=== PATIENT | female | born 1995 | race Caucasian/White ===

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

== ENCOUNTER 2017-01-15 13:42 | Emergency (ER) | payer MEDICAID ==
--- NOTE | 2017-01-15 13:55 | EDM.PDOC ---
ED HPI GENERAL MEDICAL PROBLEM - General Chief Complaint: Headache Stated Complaint: Headache Time Seen by Provider: 01/15/17 13:55 Source of Information: Reports: Patient History Limitations: Reports: No Limitations - History of Present Illness INITIAL COMMENTS - FREE TEXT/NARRATIVE: 21 YO WF [id number] 37 week complaining of generalized headache x 4 days. Pt reports she came to ER because she felt like she had less activity. Pt reports she developed her headache 4 days ago but has been able to manage it with tylenol. Pt denies any lower extremity swelling or shortness of breath. Pt denies any previous history of headaches. Pt denies any fever/chills or nausea/vomiting. Onset Date: 01/12/17 Duration: Day(s): (4) Location: Reports: Head Quality: Reports: Ache Severity: Mild Improves with: Reports: None Worsens with: Reports: None Associated Symptoms: Reports: No Other Symptoms Headache Pain Score (Numeric/FACES): 6 - Related Data Allergies Allergy/AdvReac Type Severity Reaction Status Date / Time No Known Drug Allergies Allergy Other Verified 01/15/17 14:04 Home Meds: Home Meds Famotidine [Famotidine] 20 mg PO DAILY PRN 01/15/17 [History] Pnv With Ca,No.72/Iron,Carb/FA [ Plus Iron Tablet] 1 each PO DAILY 01/15 [History] Past Medical History Respiratory History: Reports: Other (See Below) Other Respiratory History: Recurrent pneumonia in childhood, none for past 5 years. Gastrointestinal History: Reports: Other (See Below) Other Gastrointestinal History: some gallbladder issues with first Genitourinary History: Reports: Other (See Below) Other Genitourinary History: Pt states she passed kidney stones during her first . 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 Neurological History: Reports: Migraines Psychiatric History: Reports: PTSD, Other (See Below) Other Psychiatric History: "Found some relief from PTSD in medicinal marijuana. " But denies any use in past 3 months. Social & Family History - Family History Family Medical History: Noncontributory - Tobacco Use Smoking Status *Q: Former Smoker Used Tobacco, but Quit: Yes Month Tobacco Last Used: July2016 Second Hand Smoke Exposure: No - Recreational Drug Use Recreational Drug Use: Yes Drug Use in Last 12 Months: Yes Recreational Drug Type: Reports: Marijuana/Hashish, Other (see below) Other Recreational Drug Type: Used medicinal marijuana for treatment of PTSD in [place] Recreational Drug Use Frequency: Not Used In Over 3 Months ED ROS GENERAL - Review of Systems Review Of Systems: See Below Constitutional: Reports: No Symptoms HEENT: Reports: No Symptoms Respiratory: Reports: No Symptoms Cardiovascular: Reports: No Symptoms Endocrine: Reports: No Symptoms GI/Abdominal: Reports: No Symptoms : Reports: No Symptoms Musculoskeletal: Reports: No Symptoms Skin: Reports: No Symptoms Neurological: Reports: Headache Psychiatric: Reports: No Symptoms Hematologic/Lymphatic: Reports: No Symptoms Immunologic: Reports: No Symptoms ED EXAM, GENERAL - Physical Exam Exam: See Below Exam Limited By: No Limitations General Appearance: Alert, WD/WN, No Apparent Distress Eye Exam: Bilateral Eye: EOMI, PERRL Nose: Normal Inspection, Normal Mucosa, No Blood Throat/Mouth: Normal Inspection, Normal Lips, Normal Teeth, Normal Gums, Normal Oropharynx, Normal Voice, No Airway Compromise Head: Atraumatic, Normocephalic Neck: Normal Inspection, Supple, Non-Tender, Full Range of Motion Respiratory/Chest: No Respiratory Distress, Lungs Clear, Normal Breath Sounds, No Accessory Muscle Use, Chest Non-Tender Cardiovascular: Normal Peripheral Pulses, Regular Rate, Rhythm, No Edema, No Gallop, No JVD, No Murmur, No Rub GI/Abdominal: Normal Bowel Sounds, Soft, Non-Tender, No Organomegaly, No Distention, No Abnormal Bruit, No Mass Back Exam: Normal Inspection, Full Range of Motion, NT Extremities: Normal Inspection, Normal Range of Motion, Non-Tender, Normal Capillary Refill, No Pedal Edema Neurological: Alert, Oriented, CN II-XII Intact, Normal Cognition, Normal Gait, Normal Reflexes, No Motor/Sensory Deficits Psychiatric: Normal Affect, Normal Mood Skin Exam: Warm, Dry, Intact, Normal Color, No Rash Lymphatic: No Adenopathy Course - Vital Signs Last Recorded V/S: Last Vital Signs Temp 36.3 C 01/15/17 13:53 Pulse 100 01/15/17 13:53 Resp 18 01/15/17 13:53 BP 133/74 01/15/17 13:53 Pulse Ox 97 01/15/17 13:53 - Orders/Labs/Meds Orders: Active Orders 24 hr Category Date Time Status Heart Tones [ Heart Rate] [RC] Click to Edit Care 01/15/17 14:25 Active UA W/MICROSCOPIC [URIN] Stat Lab 01/15/17 14:23 Results Labs: Laboratory Tests 01/15/17 Range/Units 14:23 Urine Color Yellow (YELLOW) Urine Appearance Slightly cloudy H (CLEAR) Urine pH 7.0 (5.0-9.0) Ur Specific [place] 1.015 (1.005-1.030) Urine Protein Negative (NEGATIVE) mg/dL Urine Glucose (UA) Negative (NEGATIVE) mg/dL Urine Ketones Negative (NEGATIVE) mg/dL Urine Occult Blood Negative (NEGATIVE) Urine Nitrite Negative (NEGATIVE) Urine Bilirubin Negative (NEGATIVE) Urine Urobilinogen 0.2 (0.2-1.0) E.U./dL Ur Leukocyte Esterase Negative (NEGATIVE) Meds: Medications Discontinued Medications Generic Name Dose Route Start Last Admin Trade Name Artemioq PRN Reason Stop Dose Admin Acetaminophen 1,000 mg 01/15/17 14:24 01/15/17 14:32 Tylenol Extra Strength PO 01/15/17 14:25 1,000 mg ONETIME ONE Administration Diphenhydramine HCl 50 mg 01/15/17 14:24 01/15/17 14:32 Benadryl PO 01/15/17 14:25 50 mg ONETIME ONE Administration - Radiology Interpretation Free Text/Narrative:: Heart Tones- 160BPM Departure - Departure Time of Disposition: 14:50 Disposition: Home, Self-Care 01 Condition: Good Clinical Impression: Headache Qualifiers: Headache type: unspecified Headache chronicity pattern: acute headache Intractability: not intractable Qualified Code(s): R51 - Headache Qualifiers: Weeks of gestation: 37 weeks Qualified Code(s): Z3A.37 - 37 weeks gestation of - Discharge Information Instructions: General Headache Without Cause, [id number] Referrals: Rachel Ann TRUST MANAGER [Primary Care Provider] - Forms: ED Department Discharge - My Orders Last 24 Hours: My Active Orders 01/15/17 14:23 UA W/MICROSCOPIC [URIN] Stat 01/15/17 14:25 Heart Tones [ Heart Rate] [RC] Click to Edit - Assessment/Plan Last 24 Hours: My Active Orders 01/15/17 14:23 UA W/MICROSCOPIC [URIN] Stat 01/15/17 14:25 Heart Tones [ Heart Rate] [RC] Click to Edit Assessment:: 1. Headache- no evidence of pre-eclampsia 2. decreased movrement per patient- FHT 160's; sent to [facility] for pelvic U/S 3. follow up with SEX OFFENDER TREATMENT PROFESSIONAL for further evaluation and treatment per clinic 4. return to ER for worsening symptoms Plan: 1. Headache- no evidence of pre-eclampsia 2. decreased movrement per patient- FHT 160's; sent to [facility] for pelvic U/S 3. follow up with SEX OFFENDER TREATMENT PROFESSIONAL for further evaluation and treatment per clinic 4. return to ER for worsening symptoms
[2017-01-15 14:04] VITALS: BP 133/74
[2017-01-15] MEDS ORDERED: Acetaminophen 500 MG Tab PO ONE (14:24)
[2017-01-15] MEDS ORDERED: diphenhydrAMINE 25 MG Cap PO ONE (14:24)
== END 2017-01-15 14:55 | disposition home or self-care (01) ==
LOC: KA.ED 13:42
DX: O99.89 Other specified diseases and conditions complicating pregnancy, childbirth and the puerperium (principal); R51 Headache; Z87.891 Personal history of nicotine dependence; Z3A.37 37 weeks gestation of pregnancy
CPT/HCPCS: 81001; 99284; A9270

== ENCOUNTER 2017-02-09 15:06 | Emergency (ER) | payer MEDICAID ==
--- NOTE | 2017-02-09 15:31 | EDM.PDOC ---
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 CONTRACTIONS STARTED APPROXIMATELY 4 HOURS AGO AND INTERVALS ARE DECREASING. PATIENT STATES PRIOR TO ARRIVAL CONTRACTIONS WERE ABOUT 10 MINUTES APART AND WHILE IN ER DECREASED TO 4-5 MINUTES APART. PATIENT WAS SEEN [address] SEWELL IN [place], PATIENT STATES HAS BEEN UNEVENTFUL, PROGRESSING WELL, AND WAS SCHEDULED TO BE INDUCED TOMORROW MORNING. DISCUSSED CASE WITH DR. GALVEZ'S, OB /AUDIO VISUAL ARTS DIRECTOR FROM [facility] AND RECOMMENDATION WAS TO TRANSPORT PATIENT VIA EMS IMMEDIATELY. PELVIC EXAM WAS NOT PERFORMED AT THIS TIME FOR FEAR OF INDUCING LABOR. HEART TONES AT 130, AND PATIENT'S VITAL SIGNS WERE STABLE. PATIENT DENIES VAGINAL BLEEDING, CHEST PAIN, SHORTNESS OF BREATH. Onset: Today Duration: Hour(s): Location: Reports: Abdomen Quality: Reports: Other (CONTRACTIONS) Improves with: Reports: None Worsens with: Reports: None - Related Data Allergies Allergy/AdvReac Type Severity Reaction Status Date / Time No Known Drug Allergies Allergy Other Verified 01/15/17 14:04 Home Meds: Home Meds Famotidine [Famotidine] 20 mg PO DAILY PRN 01/15/17 [History] Pnv With Ca,No.72/Iron,Carb/FA [ Plus Iron Tablet] 1 each PO DAILY 01/15 [History] Past Medical History Respiratory History: Reports: Other (See Below) Other Respiratory History: Recurrent pneumonia in childhood, none for past 5 years. Gastrointestinal History: Reports: Other (See Below) Other Gastrointestinal History: some gallbladder issues with first Genitourinary History: Reports: Other (See Below) Other Genitourinary History: Pt states she passed kidney stones during her first . 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 Neurological History: Reports: Migraines Psychiatric History: Reports: PTSD, Other (See Below) Other Psychiatric History: "Found some relief from PTSD in medicinal marijuana. " But denies any use in past 3 months. Social & Family History - Family History Family Medical History: Noncontributory - Tobacco Use Smoking Status *Q: Former Smoker Used Tobacco, but Quit: Yes Month Tobacco Last Used: July2016 Second Hand Smoke Exposure: No - Caffeine Use Caffeine Use: Reports: Coffee, Soda - Recreational Drug Use Recreational Drug Use: Yes Drug Use in Last 12 Months: Yes Recreational Drug Type: Reports: Marijuana/Hashish, Other (see below) Other Recreational Drug Type: Used medicinal marijuana for treatment of PTSD in [place] Recreational Drug Use Frequency: Not Used In Over 3 Months ED ROS GENERAL - Review of Systems Review Of Systems: ROS reveals no pertinent complaints other than HPI. Constitutional: Reports: No Symptoms HEENT: Reports: No Symptoms Respiratory: Reports: No Symptoms Cardiovascular: Reports: No Symptoms Endocrine: Reports: No Symptoms GI/Abdominal: Reports: Abdominal Pain, Other (CONTRACTIONS) Musculoskeletal: Reports: No Symptoms Skin: Reports: No Symptoms Neurological: Reports: No Symptoms Psychiatric: Reports: No Symptoms Hematologic/Lymphatic: Reports: No Symptoms Immunologic: Reports: No Symptoms ED EXAM - Physical Exam Exam: See Below Exam Limited By: No Limitations General Appearance: Alert, WD/WN, No Apparent Distress Throat/Mouth: Normal Inspection, Normal Oropharynx, No Airway Compromise Respiratory/Chest: No Respiratory Distress, Lungs Clear, Normal Breath Sounds, No Accessory Muscle Use, Chest Non-Tender Cardiovascular: Regular Rate, Rhythm, No Murmur GI/Abdominal Exam: Other () Fundal Height In cm: 32 (Female) Exam: Deferred for Placenta Previa. No: Vaginal Bleeding Heart Tones: Present Heart Tones per Min: 130 Movement: Active Extremities: Normal Inspection Neurological: Alert, Oriented, Normal Cognition Psychiatric: Normal Affect, Normal Mood Skin Exam: Warm Course - Re-Assessments/Exams Free Text/Narrative Re-Assessment/Exam: 02/09/17 15:47 PATIENT AFEBRILE, NONTOXIC APPEARING, VITAL SIGNS STABLE. HEART TONES AT 130 BPM. PELVIC EXAM DEFERRED AT THIS TIME TO NOT INDUCE LABOR. CONTRACTIONS ARE 3 -5 MINUTES APART. DISCUSSED CASE WITH DR. GALVEZ'S AND RECOMMENDATION WAS TO TRANSPORT VIA EMS IMMEDIATELY. PATIENT WAS THEREFORE TRANSPORTED VIA [facility] TO THE LABOR ROOM AT [facility]. Departure - Departure Time of Disposition: 15:50 Disposition: DC/Tfer to Acute Hospital 02 Condition: Fair Clinical Impression: Intrauterine , Labor and delivery indication for care or intervention Qualifiers: Weeks of gestation: 37 weeks Qualified Code(s): Z3A.37 - 37 weeks gestation of - Discharge Information Referrals: Rachel Ann, [employer] [Primary Care Provider] - Forms: ED Department Discharge - Assessment/Plan Assessment:: , LABOR Plan: TRANSPORTED TO [facility]
[2017-02-09 16:06] VITALS: BP 135/67
== END 2017-02-09 15:30 ==
LOC: KA.ED 15:06
DX: Z34.03 Encounter for supervision of normal first pregnancy, third trimester (principal); Z79.899 Other long term (current) drug therapy; Z87.891 Personal history of nicotine dependence; Z3A.37 37 weeks gestation of pregnancy
CPT/HCPCS: 99284